=== PATIENT | male | born 1965 | race Caucasian/White ===

== ENCOUNTER 2017-09-19 18:56 | Emergency (ER) | payer OTHER ==
[~2017-09-19] VITALS: Ht 177.8 cm; Wt 84.8 kg
--- NOTE | ~2017-09-19 | EKG ---
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
[2017-09-19] MEDS ORDERED: LISINOPRIL10 MG PO (19:08)
[2017-09-19] MEDS ORDERED: INDOMETHACIN 5050 M1 PO (19:08)
[2017-09-19] MEDS ORDERED: PREDNISONE 20 M20 MG PO (19:08)
[2017-09-19] MEDS ORDERED: ALLOPURINOL 30300 M1 PO (19:09)
[2017-09-19 20:41] LABS: HEMATOCRIT 39.1 % (42.0-52.0); HEMOGLOBIN 13.3 gm/dL (14.0-18.0); MCH 28.2 pg (26.0-34.0); MCHC 34.1 g/dL (28.0-37.0); MCV 82.7 fL (80.0-100.0); PLATELET COUNT 234 thou/uL (150-400); RBC 4.72 mil/uL (4.50-6.00); RDW 17.3 % (10.5-14.5); WBC 8.7 thou/uL (4.0-11.0)
[2017-09-19 20:42] LABS: MANUAL DIFF YES
[2017-09-19 20:43] LABS: URINE BILIRUBIN NEGATIVE (Negative); URINE BLOOD NEGATIVE (Negative); URINE COLOR YELLOW; URINE GLUCOSE-RANDOM* NEGATIVE (Negative); URINE KETONES NEGATIVE (Negative); URINE NITRITE NEGATIVE (Negative); URINE PROTEIN (DIPSTICK) NEGATIVE (Negative); URINE SPECIFIC GRAVITY <= 1.005 (1.005-1.035); URINE UROBILINOGEN 0.2 E.U./dl (0.2-1.0)
[2017-09-19 20:45] LABS: ANION GAP 8 mmol/L (7-16); BUN 16 mg/dL (7-18); CALCIUM 9.1 mg/dL (8.5-10.1); CHLORIDE 105 mmol/L (98-107); CO2 28 mmol/L (21-32); GLUCOSE 152 mg/dL (74-106); POTASSIUM 4.1 mmol/L (3.5-5.1); SODIUM 141 mmol/L (136-145)
[2017-09-19 20:53] LABS: ALKALINE PHOSPHATASE 82 U/L (46-116); MAGNESIUM 2.2 mg/dL (1.8-2.4); SGOT 36 U/L (15-37); SGPT 43 U/L (30-65); TOTAL BILIRUBIN 0.2 mg/dL (<0.1-1.0); TOTAL PROTEIN 7.3 g/dL (6.4-8.2); TROPONIN-I < 0.04 ng/mL (<0.06); URIC ACID* 5.2 mg/dL (2.6-7.2)
[2017-09-19 20:58] LABS: ANISOCYTOSIS 1+; TOTAL CELL COUNT 100
[2017-09-19] MEDS ORDERED: ANTIVERT25 MG PO (21:11)
[2017-09-19 22:46] VITALS: BP 156/92
== END 2017-09-19 22:48 | disposition home or self-care (01) ==
LOC: ER 18:56
PROVIDERS: Emergency Medicine
DX: R42 Dizziness and giddiness (principal); I10 Essential (primary) hypertension; I95.1 Orthostatic hypotension; R20.2 Paresthesia of skin